=== PATIENT | female | born 1990 | race African-American/Black ===

== ENCOUNTER 2017-08-13 19:33 | Emergency (ER) | payer OTHER | END 2017-08-13 21:30 | disposition home or self-care (01) | LOC: ER 19:33 | DX: S99.921A Unspecified injury of right foot, initial encounter (principal); W18.39XA Other fall on same level, initial encounter; Y93.89 Activity, other specified; Y99.8 Other external cause status; Y92.89 Other specified places as the place of occurrence of the external cause | CPT/HCPCS: 73630; 99284 ==

== ENCOUNTER 2018-06-24 07:59 | Emergency (ER) | payer OTHER ==
[~2018-06-24] VITALS: Ht 157.5 cm; Wt 63.5 kg
[2018-06-24] MEDS ORDERED: METOCLOPRAMIDE HCL 10 MG/2 ML VIAL. IV ONE (08:30)
[2018-06-24] MEDS ORDERED: IV NORMAL SALINE 1000ML BAG 1,000 ML IV ONE (08:30)
--- NOTE | 2018-06-24 08:43 | PHYS DOC ---
Past Medical History Past Medical History: No Pertinent History Past Surgical History: No Surgical History Alcohol Use: None Drug Use: None Adult General Chief Complaint Chief Complaint: VOMITING IN HPI HPI 28-year-old female presents to ER via POV for complaints of nausea and vomiting. Patient reports she found out on 06/06/18 she was with a urine test at doctor's office. Patient reports over the past few days she's had increased fatigue along with nausea and vomiting. Patient states she has had 2 episodes of vomiting today. Patient reports she has had lower back pain which radiates into left lower abdomen intermittently-at time of initial exam patient denies abdominal pain or cramping. Patient denies any vaginal bleeding or discharge. LMP was in the of March into beginning of April. Patient states she is 4 para 3. Patient states she has a 13-year-old and a 2-year-old home she had a 2-month-old child pass away- she reports child would have been 3 yrs old currently. Patient states she is also had cold-like symptoms with nonproductive cough and sore throat. Patient denies earache, dizziness, headache, or chest pain/dictations. Patient states she did take Tylenol last night denying any [id number] medications today. Patient states her daughter has cold-like symptoms currently. Patient denies smoking, alcohol use, or illicit drugs. 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 Winston Review of Systems Review of Systems Constitutional: Reports she felt feverish denies checking temperature and reports generalized fatigue Eyes: Denies change in visual acuity, redness, or eye pain [] HENT: Denies nasal congestion/earache. Reports sore throat Respiratory: Denies shortness of breath. Reports nonproductive cough Cardiovascular: Denies chest pain or palpitations GI: Denies bloody stools or diarrhea. Reports intermittent left lower abdominal cramping denies at time of initial exam. Reports intermittent nausea and vomiting-episodes today : Denies dysuria or hematuria. Denies vaginal bleeding or discharge-denies concerns for STDs Musculoskeletal: Denies joint pain. Reports left lower back pain Integument: Denies rash, swelling or skin lesions [] Neurologic: Denies headache, focal weakness or sensory changes denies dizziness Endocrine: Denies polyuria or polydipsia [] All other systems were reviewed and found to be within normal limits, except as documented in this note. Current Medications Current Medications Current Medications Medications (Trade) Dose Ordered Sig/Philip Start Time Stop Time Status Last Admin Dose Admin Metoclopramide HCl (Reglan Vial) 10 mg 1X ONCE 06/24/18 08:30 06/24/18 08:37 DC 06/24/18 09:11 10 MG Potassium Chloride (Klor-Con) 40 meq 1X ONCE 06/24/18 09:45 06/24/18 09:48 DC 06/24/18 09:45 40 MEQ Sodium Chloride 1,000 ml @ 1,000 mls/hr 1X ONCE 06/24/18 08:30 06/24/18 09:29 DC 06/24/18 09:10 1,000 MLS/HR Allergies Allergies Allergies Coded Allergies Type Severity Reaction Last Updated Verified No Known Drug Allergies 07/16/14 No Physical Exam Physical Exam Constitutional: Well developed, well nourished, no acute distress, non-toxic appearance. Fatigued appearance HENT: Normocephalic, atraumatic, bilateral ears normal- sutures on top of posterior external ear without swelling/erythema/drainage at site- she reports had surg. 06/06/18 and sutures are absorbable hasn't had f/u appt, mucous membranes pink/dry, mild pharyngeal erythema w/out tonsillar swelling; no oral exudates, nose normal. [] Eyes: Pupils equal, conjunctiva normal, no discharge. [] Neck: Normal range of motion, no tenderness/stiffness, supple. No gross adenopathy Cardiovascular: Heart rate regular rhythm, no murmur [] Lungs & Thorax: Bilateral breath sounds clear to auscultation. Respirations equal and nonlabored- no cough during exam Abdomen: Bowel sounds normal, soft, no tenderness-distention or rigidity, no masses, no pulsatile masses. [] Skin: Warm, dry, no erythema, no rash. [] Back: No tenderness, no bilateral CVA tenderness Extremities: No tenderness, no cyanosis, no clubbing, ROM intact, no edema. [] Neurologic: Alert and oriented X 3, normal motor function, normal sensory function, no focal deficits noted. [] Psychologic: Affect normal, judgement normal, mood normal. [] Current Patient Data Vital Signs Vital Signs Date Time Temp Pulse Resp B/P (MAP) Pulse Ox O2 Delivery O2 Flow Rate FiO2 06/24/18 12:00 84 20 97/55 (69) 98 Room Air 06/24/18 08:26 98.7 98.7 Lab Values Laboratory Tests Test 06/24/18 08:25 06/24/18 08:40 06/24/18 09:12 Urine Color Yellow Urine Clarity Clear Urine pH 6.0 Urine Specific [place] >=1.030 Urine Protein 30 mg/dL (NEG-TRACE) Urine Glucose (UA) Negative mg/dL (NEG) Urine Ketones (Stick) Negative mg/dL (NEG) Urine Blood Negative (NEG) Urine Nitrite Negative (NEG) Urine Bilirubin Negative (NEG) Urine Urobilinogen Dipstick 1.0 mg/dL (0.2 mg/dL) Urine Leukocyte Esterase Negative (NEG) Urine RBC 0 /HPF (0-2) Urine WBC Occ /HPF (0-4) Urine Squamous Epithelial Cells Mod /LPF Urine Bacteria 0 /HPF (0-FEW) Urine Mucus Mod /LPF White Blood Count 15.0 x10^3/uL (4.0-11.0) H Red Blood Count 4.26 x10^6/uL (3.50-5.40) Hemoglobin 11.1 g/dL (12.0-15.5) L Hematocrit 33.1 % (36.0-47.0) L Mean Corpuscular Volume 78 fL (79-100) L Mean Corpuscular Hemoglobin 26 pg (25-35) Mean Corpuscular Hemoglobin Concent 33 g/dL (31-37) Red Cell Distribution Width 13.1 % (11.5-14.5) Platelet Count 242 x10^3/uL (140-400) Neutrophils (%) (Auto) 88 % (31-73) H Lymphocytes (%) (Auto) 7 % (24-48) L Monocytes (%) (Auto) 5 % (0-9) Eosinophils (%) (Auto) 0 % (0-3) Basophils (%) (Auto) 0 % (0-3) Neutrophils # (Auto) 13.2 x10^3uL (1.8-7.7) H Lymphocytes # (Auto) 1.1 x10^3/uL (1.0-4.8) Monocytes # (Auto) 0.7 x10^3/uL (0.0-1.1) Eosinophils # (Auto) 0.0 x10^3/uL (0.0-0.7) Basophils # (Auto) 0.0 x10^3/uL (0.0-0.2) Segmented Neutrophils % 88 % (35-66) H Band Neutrophils % 5 % (0-9) Lymphocytes % 6 % (24-48) L Monocytes % 1 % (0-10) Platelet Estimate Adequate (ADEQUATE) Maternal Serum HCG Beta Subunit 01948 mIU/mL (0-5) H Sodium Level 135 mmol/L (136-145) L Potassium Level 2.9 mmol/L (3.5-5.1) *L Chloride Level 98 mmol/L (98-107) Carbon Dioxide Level 25 mmol/L (21-32) Anion Gap 12 (6-14) Blood Urea Nitrogen 9 mg/dL (7-20) Creatinine 1.0 mg/dL (0.6-1.0) Estimated GFR (Cockcroft-Gault) 78.8 Glucose Level 119 mg/dL (70-99) H Calcium Level 9.3 mg/dL (8.5-10.1) Total Bilirubin 0.6 mg/dL (0.2-1.0) Direct Bilirubin 0.2 mg/dL (0.0-0.2) Aspartate Amino Transferase (AST) 15 U/L (15-37) Alanine Aminotransferase (ALT) 15 U/L (14-59) Alkaline Phosphatase 30 U/L (46-116) L Total Protein 8.1 g/dL (6.4-8.2) Albumin 3.4 g/dL (3.4-5.0) Lipase 149 U/L (73-393) Influenza Type A Antigen Negative (NEGATIVE) Influenza Type B Antigen Negative (NEGATIVE) Laboratory Tests 06/24/18 08:40 Laboratory Tests 06/24/18 08:40 EKG EKG [] Radiology/Procedures Radiology/Procedures PROCEDURE: OB <14 WKS W/TV OB <14 WKS W/TV History: Left flank pain Comparison: July 16, 2014 Findings: Multiple transabdominal sonographic images of the pelvis are submitted. Uterus measured 10.1 x 6.4 x 7.9 cm. There is a single intrauterine gestational sac. There is visible yolk sac and pole. There is demonstrable cardiac activity 139 bpm. Gestational sac morphology is within normal limits. [place]-rump length measurement of 0.54 cm corresponds with 6 weeks 2 days. Adjusted ultrasound age is 6 weeks 2 days with estimated delivery date by ultrasound 02/15/2019. Amniotic fluid is within normal limits for age. Placenta and anatomy are not well visualized at this age of the . Right maternal ovary measured 1.4 x 2.2 x 1.8 cm, normal color flow and low resistance vascularity. Left ovary measured 3.2 x 1.9 x 1.8 cm with normal low resistance vascularity. Transvaginal ultrasound: Multiple transvaginal sonographic images of pelvis are submitted. There is a single intrauterine gestational sac with demonstrable pole and yolk sac. Right maternal ovary measured 1.6 x 3.3 x 1.7 cm with normal low resistance vascularity. Left ovary measured 3.1 x 4.5 x 3.1 cm. There is a focus of different echogenicity of the left ovary about 2.1 x 2.1 x 2.3 cm, central area of hypoechogenicity with surrounding areas of echogenicity, also associated peripheral vascularity. No significant free fluid is demonstrated. Impression: 1. There is a single viable intrauterine , adjusted ultrasound age of 6 weeks 2 days with estimated delivery date of 02/15/2019. 2. There is a focus of different echogenicity left ovary more likely due to hemorrhagic or complex cyst, may be sequela of corpus luteal cyst. Electronically signed by: Tyrel Alvarado MD (06/24/2018 10:37 AM) [id number] Course & Med Decision Making Course & Med Decision Making Pertinent Labs and Imaging studies reviewed. (See chart for details) 1215: Reevaluation found patient to be sleeping when this provider entered the room. Patient is nontoxic in appearance and in no visible distress-she appears less fatigued than at time of initial exam. She received IV fluids and dose of Reglan. Heart rate 88 oxygen 98% on room air RR 18. At this time patient is denying any pain, shortness of air, vaginal bleeding, pelvic pain/pressure, or nausea. Reports she is feeling better than at time of arrival to ER. Discussed probable viral symptoms as her daughter also has cold-like symptoms currently. She denies being around anyone recently diagnosed with flu. She has had no active vomiting while in the ER. Discussed test results. Pt has follow-up appointment tomorrow with her FLAVOR EXTRACTOR. Test results were discussed with pt. Neg. flu test. OB US report of "single viable intrauterine , adjusted ultrasound age of 6 weeks 2 days with estimated delivery date of 02/15/2019". [place] [address]. WBCs 15.0 with 5 bands- no source of infection found. H& H 11.1/33.1. UA with 30 protein neg. ketones/blood/leuks. Pt has been afebrile. Discussion had with patient regarding potassium of 2.9. Patient was given oral K + 40 mEq while in the ER and had PO challenge with no c/o nausea or vomiting episodes. Pt was advised on increasing fluid intake and vitamins w/iron - pt plans to discuss this with FLA[employer] EXTRACTOR tomorrow. Pt advised to have K+ rechecked at [employer] EXTR[employer] appt. patient states she feels comfortable with home discharge at this time with symptoms improving. Education provided on signs and symptoms to return to ER for an discharge instructions were discussed. Pt's case and plan of care was discussed with Dr. Ponce. Staff Physician Addendum: I was working in the ER during the course of this patient's visit. I was available for consultation as needed, but I was not directly involved in the care of this patient. Dragon Disclaimer Dragon Disclaimer This electronic medical record was generated, in whole or in part, using a voice recognition dictation system. Departure Departure Impression: Primary Impression: Nausea and vomiting in Additional Impression: Viral syndrome Disposition: 01 HOME, SELF-CARE Condition: STABLE Referrals: MARIBEL WINSTON MD (PCP) Patient Instructions: Hypokalemia, Nausea and Vomiting, Viral Syndrome Additional Instructions: Keep your appointment tomorrow with your F[employer] EXTR[employer] doctor for reevaluation. Have your potassium rechecked- in the ER you had a 2.9 potassium and was provided with 40meq oral potassium supplement. If symptoms worsen or with concerns return to the emergency room for further care and reevaluation. Increase fluid intake for hydration. Eat bananas and other potassium-rich foods with a well-balanced diet. Tylenol as directed on container as needed for pain Problem Qualifiers ISELA SIFUENTES APRN Jun 24, 2018 08:43 KATHY PONCE MD Jun 27, 2018 20:29
[2018-06-24 08:51] LABS: BILIRUBIN,URINE NEGATIVE (NEG); CLARITY,URINE CLEAR; COLOR,URINE YELLOW; NITRITE,URINE NEGATIVE (NEG); PROTEIN,URINE 30 mg/dL (NEG-TRACE)
[2018-06-24 08:57] LABS: BASO % 0 % (0-3); EOS % 0 % (0-3); HEMATOCRIT 33.1 % (36.0-47.0); HEMOGLOBIN 11.1 g/dL (12.0-15.5); LYMPH # 1.1 x10^3/uL (1.0-4.8); LYMPH % 7 % (24-48); MEAN CORPUSCULAR HEMOGLOBIN 26 pg (25-35); MEAN CORPUSCULAR HGB CONC 33 g/dL (31-37); MEAN CORPUSCULAR VOLUME 78 fL (79-100); MONO # 0.7 x10^3/uL (0.0-1.1); MONO % 5 % (0-9); NEUT # 13.2 x10^3uL (1.8-7.7); NEUT % 88 % (31-73); PLATELET COUNT 242 x10^3/uL (140-400); RED BLOOD COUNT 4.26 x10^6/uL (3.50-5.40); RED CELL DISTRIBUTION WIDTH 13.1 % (11.5-14.5)
[2018-06-24 09:03] LABS: BACTERIA,URINE 0 /HPF (0-FEW); RBC,URINE 0 /HPF (0-2); SQUAMOUS EPITHELIAL CELL,UR MOD /LPF; WBC,URINE OCC /HPF (0-4)
[2018-06-24 09:06] LABS: CALCIUM 9.3 mg/dL (8.5-10.1); GFR 78.8
[2018-06-24 09:22] LABS: POTASSIUM 2.9 mmol/L (3.5-5.1)
[2018-06-24 09:40] LABS: INFLUENZA A PATIENT NEGATIVE (NEGATIVE); INFLUENZA B PATIENT NEGATIVE (NEGATIVE)
[2018-06-24] MEDS ORDERED: POTASSIUM CHLORIDE 20 MEQ TABLET.ER. PO ONE (09:45)
--- NOTE | 2018-06-24 10:41 | RAD ---
OB <14 WKS W/TV History: Left flank pain Comparison: July 16, 2014 Findings: Multiple transabdominal sonographic images of the pelvis are submitted. Uterus measured 10.1 x 6.4 x 7.9 cm. There is a single intrauterine gestational sac. There is visible yolk sac and pole. There is demonstrable cardiac activity 139 bpm. Gestational sac morphology is within normal limits. [place]-rump length measurement of 0.54 cm corresponds with 6 weeks 2 days. Adjusted ultrasound age is 6 weeks 2 days with estimated delivery date by ultrasound 02/15/2019. Amniotic fluid is within normal limits for age. Placenta and anatomy are not well visualized at this age of the . Right maternal ovary measured 1.4 x 2.2 x 1.8 cm, normal color flow and low resistance vascularity. Left ovary measured 3.2 x 1.9 x 1.8 cm with normal low resistance vascularity. Transvaginal ultrasound: Multiple transvaginal sonographic images of pelvis are submitted. There is a single intrauterine gestational sac with demonstrable pole and yolk sac. Right maternal ovary measured 1.6 x 3.3 x 1.7 cm with normal low resistance vascularity. Left ovary measured 3.1 x 4.5 x 3.1 cm. There is a focus of different echogenicity of the left ovary about 2.1 x 2.1 x 2.3 cm, central area of hypoechogenicity with surrounding areas of echogenicity, also associated peripheral vascularity. No significant free fluid is demonstrated. Impression: 1. There is a single viable intrauterine , adjusted ultrasound age of 6 weeks 2 days with estimated delivery date of 02/15/2019. 2. There is a focus of different echogenicity left ovary more likely due to hemorrhagic or complex cyst, may be sequela of corpus luteal cyst. Electronically signed by: Tyrel Alvarado MD (06/24/2018 10:37 AM) [id number]
[2018-06-24 11:23] LABS: % BANDS 5 % (0-9); % LYMPHS 6 % (24-48); % MONOS 1 % (0-10); % SEGS 88 % (35-66); PLT ESTIMATE ADEQUATE (ADEQUATE)
[2018-06-24 12:00] VITALS: BP 97/55
[2018-06-24 12:15] LABS: ALBUMIN 3.4 g/dL (3.4-5.0); DIRECT BILIRUBIN 0.2 mg/dL (0.0-0.2); TOTAL BILIRUBIN 0.6 mg/dL (0.2-1.0); TOTAL PROTEIN 8.1 g/dL (6.4-8.2)
== END 2018-06-24 12:28 | disposition home or self-care (01) ==
LOC: ER 07:59
DX: O21.9 Vomiting of pregnancy, unspecified (principal); O98.511 Other viral diseases complicating pregnancy, first trimester; B34.9 Viral infection, unspecified; Z3A.01 Less than 8 weeks gestation of pregnancy
CPT/HCPCS: 36415; 76801; 76817; 80048; 80076; 81001; 83690; 84702; 85007; 85025; 87804; 96361; 96374; 99284; J2765; J7030

== ENCOUNTER 2018-09-12 11:00 | Emergency (ER) | payer OTHER ==
[~2018-09-12] VITALS: Ht 157.5 cm; Wt 66.7 kg
[2018-09-12] MEDS ORDERED: PROCHLORPERAZINE 10 MG/2 ML VIAL. IV ONE (12:15)
[2018-09-12] MEDS ORDERED: ACETAMINOPHEN 500 MG TABLET PO ONE (12:15)
[2018-09-12] MEDS ORDERED: IV NORMAL SALINE 1000ML BAG 1,000 ML IV ONE (12:15)
[2018-09-12 12:16] LABS: BILIRUBIN,URINE NEGATIVE (NEG); CLARITY,URINE CLEAR; COLOR,URINE YELLOW; NITRITE,URINE NEGATIVE (NEG); PH,URINE 7.5; PROTEIN,URINE NEGATIVE (NEG-TRACE)
[2018-09-12 12:30] LABS: BACTERIA,URINE FEW /HPF (0-FEW); RBC,URINE OCC /HPF (0-2); SQUAMOUS EPITHELIAL CELL,UR MOD /LPF
[2018-09-12 12:37] LABS: BASO % 0 % (0-3); EOS # 0.3 x10^3/uL (0.0-0.7); EOS % 3 % (0-3); HEMATOCRIT 30.2 % (36.0-47.0); HEMOGLOBIN 9.8 g/dL (12.0-15.5); LYMPH # 1.7 x10^3/uL (1.0-4.8); LYMPH % 20 % (24-48); MEAN CORPUSCULAR HEMOGLOBIN 26 pg (25-35); MEAN CORPUSCULAR HGB CONC 33 g/dL (31-37); MEAN CORPUSCULAR VOLUME 81 fL (79-100); MONO # 0.4 x10^3/uL (0.0-1.1); MONO % 5 % (0-9); NEUT # 5.9 x10^3uL (1.8-7.7); NEUT % 71 % (31-73); PLATELET COUNT 160 x10^3/uL (140-400); RED BLOOD COUNT 3.72 x10^6/uL (3.50-5.40); WHITE BLOOD COUNT 8.2 x10^3/uL (4.0-11.0)
[2018-09-12 12:47] LABS: CALCIUM 8.9 mg/dL (8.5-10.1); CREATININE 0.4 mg/dL (0.6-1.0); GFR 226.8; POTASSIUM 3.7 mmol/L (3.5-5.1)
[2018-09-12 12:53] LABS: ALBUMIN 2.8 g/dL (3.4-5.0); ALBUMIN/GLOBULIN RATIO 0.7 (1.0-1.7); TOTAL BILIRUBIN 0.3 mg/dL (0.2-1.0); TOTAL PROTEIN 6.8 g/dL (6.4-8.2)
[2018-09-12 13:00] VITALS: BP 101/60
[2018-09-12] MEDS ORDERED: PROC10TA57 PO (14:34)
--- NOTE | 2018-09-12 14:35 | PHYS DOC ---
Past Medical History Past Medical History: No Pertinent History Past Surgical History: Other Additional Past Surgical Histo: right ear surgery Alcohol Use: None Drug Use: None Adult General Chief Complaint Chief Complaint: HEADACHE HPI HPI Patient is a 28 year old female 4 para 3 currently 18 weeks presenting to the ED today complaining of a 9 out of 10 frontal headache that has been going on for the last 18 weeks. Patient states she developed this headache as soon as she was told she was . She states the headache is intermittent, she describes the headache as throbbing. She states she has photosensitivity. Patient states she'll occasionally feels nauseated. Denies any vomiting. Denies this being the worst headache in her life. She states she' s been taking Tylenol with minimal relief. She states she was sent by Dr. Yu to be evaluated today. Is any fever. Denies any neck pain. She states she had an ultrasound done 2 days ago which was reviewed by her own ACCOUNTS RECEIVABLE COORDINATOR and was told everything was normal. Patient denies any abdominal pain or vaginal bleeding. Denies any urgency frequency or dysuria. Review of Systems Review of Systems Constitutional: Denies fever or chills [] Eyes: Denies change in visual acuity, redness, or eye pain [] HENT: Denies nasal congestion or sore throat [] Respiratory: Denies cough or shortness of breath [] Cardiovascular: No additional information not addressed in HPI [] GI: Reports , nausea. Denies abdominal pain, nausea, bloody stools or diarrhea [] : Denies dysuria or hematuria [] Musculoskeletal: Denies back pain or joint pain [] Integument: Denies rash or skin lesions [] Neurologic: Reports headache, denies focal weakness or sensory changes [] All other systems were reviewed and found to be within normal limits, except as documented in this note. Current Medications Current Medications Current Medications Medications (Trade) Dose Ordered Sig/Philip Start Time Stop Time Status Last Admin Dose Admin Acetaminophen (Tylenol) 1,000 mg 1X ONCE 09/12/18 12:15 09/12/18 12:16 DC 09/12/18 12:16 1,000 MG Prochlorperazine Edisylate (Compazine) 10 mg 1X ONCE 09/12/18 12:15 09/12/18 12:16 DC 09/12/18 12:16 10 MG Sodium Chloride 1,000 ml @ 1,000 mls/hr 1X ONCE 09/12/18 12:15 09/12/18 13:14 DC 09/12/18 12:17 1,000 MLS/HR Allergies Allergies Allergies Coded Allergies Type Severity Reaction Last Updated Verified No Known Drug Allergies 07/16/14 No Physical Exam Physical Exam Constitutional: Well developed, well nourished, no acute distress, non-toxic appearance. [] HENT: Normocephalic, atraumatic, bilateral external ears normal, oropharynx moist, no oral exudates, nose normal. [] Eyes: PERRLA, EOMI, conjunctiva normal, no discharge. [] Neck: Normal range of motion, no tenderness, supple, no stridor. [] Cardiovascular:Heart rate regular rhythm, no murmur [] Lungs & Thorax: Bilateral breath sounds clear to auscultation [] Abdomen: Bowel sounds normal, soft, no tenderness, no masses, no pulsatile masses. [] Skin: Warm, dry, no erythema, no rash. [] Back: No tenderness, no CVA tenderness. [] Extremities: No tenderness, no cyanosis, no clubbing, ROM intact, no edema. [] Neurologic: Alert and oriented X 3, normal motor function, normal sensory function, no focal deficits noted. [] Psychologic: Affect normal, judgement normal, mood normal. [] Current Patient Data Vital Signs Vital Signs Date Time Temp Pulse Resp B/P (MAP) Pulse Ox O2 Delivery O2 Flow Rate FiO2 09/12/18 13:00 20 99 09/12/18 12:55 70 09/12/18 11:55 98.4 97/55 (69) Room Air 98.4 Lab Values Laboratory Tests Test 09/12/18 11:35 09/12/18 12:19 Urine Collection Type Unknown Urine Color Yellow Urine Clarity Clear Urine pH 7.5 Urine Specific [place] 1.015 Urine Protein Negative mg/dL (NEG-TRACE) Urine Glucose (UA) Negative mg/dL (NEG) Urine Ketones (Stick) Negative mg/dL (NEG) Urine Blood Negative (NEG) Urine Nitrite Negative (NEG) Urine Bilirubin Negative (NEG) Urine Urobilinogen Dipstick 1.0 mg/dL (0.2 mg/dL) Urine Leukocyte Esterase Small (NEG) Urine RBC Occ /HPF (0-2) Urine WBC 5-10 /HPF (0-4) Urine Squamous Epithelial Cells Mod /LPF Urine Bacteria Few /HPF (0-FEW) Urine Mucus Slight /LPF White Blood Count 8.2 x10^3/uL (4.0-11.0) Red Blood Count 3.72 x10^6/uL (3.50-5.40) Hemoglobin 9.8 g/dL (12.0-15.5) L Hematocrit 30.2 % (36.0-47.0) L Mean Corpuscular Volume 81 fL (79-100) Mean Corpuscular Hemoglobin 26 pg (25-35) Mean Corpuscular Hemoglobin Concent 33 g/dL (31-37) Red Cell Distribution Width 15.0 % (11.5-14.5) H Platelet Count 160 x10^3/uL (140-400) Neutrophils (%) (Auto) 71 % (31-73) Lymphocytes (%) (Auto) 20 % (24-48) L Monocytes (%) (Auto) 5 % (0-9) Eosinophils (%) (Auto) 3 % (0-3) Basophils (%) (Auto) 0 % (0-3) Neutrophils # (Auto) 5.9 x10^3uL (1.8-7.7) Lymphocytes # (Auto) 1.7 x10^3/uL (1.0-4.8) Monocytes # (Auto) 0.4 x10^3/uL (0.0-1.1) Eosinophils # (Auto) 0.3 x10^3/uL (0.0-0.7) Basophils # (Auto) 0.0 x10^3/uL (0.0-0.2) Sodium Level 139 mmol/L (136-145) Potassium Level 3.7 mmol/L (3.5-5.1) Chloride Level 103 mmol/L (98-107) Carbon Dioxide Level 26 mmol/L (21-32) Anion Gap 10 (6-14) Blood Urea Nitrogen 5 mg/dL (7-20) L Creatinine 0.4 mg/dL (0.6-1.0) L Estimated GFR (Cockcroft-Gault) 226.8 BUN/Creatinine Ratio 13 (6-20) Glucose Level 78 mg/dL (70-99) Calcium Level 8.9 mg/dL (8.5-10.1) Total Bilirubin 0.3 mg/dL (0.2-1.0) Aspartate Amino Transferase (AST) 16 U/L (15-37) Alanine Aminotransferase (ALT) 13 U/L (14-59) L Alkaline Phosphatase 20 U/L (46-116) L Total Protein 6.8 g/dL (6.4-8.2) Albumin 2.8 g/dL (3.4-5.0) L Albumin/Globulin Ratio 0.7 (1.0-1.7) L Laboratory Tests 09/12/18 12:19 Laboratory Tests 09/12/18 12:19 EKG EKG [] Radiology/Procedures Radiology/Procedures [] Course & Med Decision Making Course & Med Decision Making Pertinent Labs and Imaging studies reviewed. (See chart for details) This is a 28-year-old female patient presenting to the ED today complaining of a headache for 18 weeks, she is 18 weeks . Her lab work was negative for any acute findings. Urine appears contaminated. She has no UTI symptoms. She was given IV fluids, Tylenol and Compazine. Headache has improved tremendously. She was discharged with Compazine and instructed to take Tylenol. I did discuss this case with Dr. Yu the ACCOUNTS RECEIVABLE COORDINATOR who was okay with patient going home. Dragon Disclaimer Dragon Disclaimer This electronic medical record was generated, in whole or in part, using a voice recognition dictation system. Departure Departure Impression: Primary Impression: Head ache Additional Impression: Disposition: 01 HOME, SELF-CARE Condition: STABLE Referrals: GEOFF YU MD (PCP) follow up in 1-2 weeks Patient Instructions: ABCs of , Headache, FAQs Additional Instructions: You were seen in the emergency room for headaches in . We wrote you a prescription for Compazine, take it as needed with Tylenol three times a day with your headaches. Please follow-up with Dr. Yu next week. Come back to the ED at any point symptoms worsen. Scripts Prochlorperazine Maleate (Compazine) 10 Mg Tablet 10 MG PO TID, #30 TAB Prov: SARAH TORO APRN 09/12/18 Problem Qualifiers Primary Impression: Head ache Headache type: unspecified Headache chronicity pattern: acute headache Intractability: not intractable Qualified Codes: R51 - Headache Additional Impression: Weeks of gestation: 18 weeks Qualified Codes: Z3A.18 - 18 weeks gestation of SARAH TORO ALYSON Sep 12, 2018 14:34
== END 2018-09-12 14:44 | disposition home or self-care (01) ==
LOC: ER 11:00
DX: O26.892 Other specified pregnancy related conditions, second trimester (principal); R51 Headache; R11.0 Nausea; Z3A.18 18 weeks gestation of pregnancy
CPT/HCPCS: 36415; 80053; 81001; 85025; 87086; 96374; 99283; J0780; J7030